=== PATIENT | female | born 1985 | race Caucasian/White ===

== ENCOUNTER 2020-12-07 21:44 | Inpatient (IN) ==
[~2020-12-07 21:44] MED LIST: Penicillin G Potassium IV 3,000,000 UNITS in NS 0.9% 100 ml BAG 100 ML IVPB SCH
[2020-12-07] MEDS ORDERED: Buffered Lidocaine 1% SYRIN 1 ml INTRADERM ONE (23:07)
[2020-12-07] MEDS ORDERED: Lactated Ringers 1000 ml BAG 1,000 ML IV ONE (23:07)
[2020-12-07] MEDS ORDERED: Penicillin G Potassium IV 5,000,000 UNITS in NS 0.9% 100 ml BAG 100 ML IVPB ONE (23:07)
[2020-12-07] MEDS ORDERED: Penicillin G Potassium IV 3,000,000 UNITS in NS 0.9% 100 ml BAG 100 ML IVPB SCH (23:45)
[2020-12-07] MEDS ORDERED: Lactated Ringers 1000 ml BAG 1,000 ML IV SCH (23:45)
[2020-12-07 23:49] LABS: ABS Lymphocytes 1.7 10^3/ul (1.0-4.8); ABS Monocytes 0.7 10^3/ul (0-0.8); ABS Neutrophils 10.2 10^3/ul (1.5-7.7); Eosinophil % 0.1 %; Hematocrit 38 % (35-47); Hemoglobin 12.8 g/dL (12.0-16.0); Lymphocyte % 13.5 %; Mean Corpuscular HGB Conc 34 g/dL (31-36); Mean Corpuscular Hemoglobin 28 pg (27-31); Mean Corpuscular Volume 84 fL (80-97); Mean Platelet Volume 9.6 fL (7.4-10.4); Platelet Count 234 10^3/uL (150-450); Red Blood Count 4.52 10^6 /uL (3.70-4.87); Red Cell Distribution Width 14 % (10-15); White Blood Count 12.5 10^3/uL (3.5-10.8)
[2020-12-07] MEDS ORDERED: OBEPIDURAL 0 ML EPIDURAL ONE (23:58)
[2020-12-08] MEDS ORDERED: Oxytocin in LR 20 UNITS/1,000 ML BAG IVPB ONE (00:38)
[2020-12-08 02:25] LABS: Urine Benzodiazepine Screen None Detected (None Detect); Urine Cannabinoids Screen None Detected (None Detect); Urine Opiates Screen None Detected (None Detect)
[2020-12-08] MEDS ORDERED: Glycerin ADULT 2.4 gm SUPP PR PRN (03:36)
[2020-12-08] MEDS ORDERED: Penicillin G Potassium IV 3,000,000 UNITS in NS 0.9% 100 ml BAG 100 ML IVPB SCH (04:00)
[2020-12-08] MEDS ORDERED: Oxytocin in LR 20 UNITS/1,000 ML BAG IVPB SCH (04:00)
[2020-12-08] MEDS ORDERED: Lactated Ringers 1000 ml BAG 1,000 ML IV SCH (04:00)
[2020-12-08] MEDS: Witch Hazel PAD JAR TOPICAL PRN (04:11)
[2020-12-08] MEDS: Dibucaine 1% OINT 28.35 GM TUBE PR PRN (04:11)
[2020-12-09 06:25] LABS: ABS Eosinophils 0.1 10^3/ul (0-0.6); ABS Lymphocytes 3.1 10^3/ul (1.0-4.8); ABS Monocytes 0.4 10^3/ul (0-0.8); ABS Neutrophils 5.1 10^3/ul (1.5-7.7); Hematocrit 29 % (35-47); Hemoglobin 10.1 g/dL (12.0-16.0); Lymphocyte % 35.2 %; Mean Corpuscular HGB Conc 35 g/dL (31-36); Mean Corpuscular Hemoglobin 29 pg (27-31); Mean Corpuscular Volume 85 fL (80-97); Mean Platelet Volume 9.3 fL (7.4-10.4); Platelet Count 197 10^3/uL (150-450); Red Blood Count 3.45 10^6 /uL (3.70-4.87); Red Cell Distribution Width 14 % (10-15); White Blood Count 8.8 10^3/uL (3.5-10.8)
[2020-12-09] MEDS: Dibucaine 1% OINT 28.35 GM TUBE PR PRN (20:24)
[2020-12-09] MEDS: Witch Hazel PAD JAR TOPICAL PRN (20:24)
[2020-12-10 08:33] VITALS: BP 109/74
== END 2020-12-10 12:14 | disposition home or self-care (01) | DRG 807 ==
LOC: MCHOBOUT 21:44 → MCHOB 22:45
PROVIDERS: ADMIT Obstetrics & Gynecology; ATTEND Obstetrics & Gynecology

== ENCOUNTER 2023-07-06 17:57 | Inpatient (IN) ==
[2023-07-06] MEDS ORDERED: Buffered Lidocaine 1% SYRIN 1 ml INTRADERM ONE (18:33)
[2023-07-06] MEDS ORDERED: Prochlorperazine 5 mg/ml 2 ml VIAL (10 mg) IV PRN (18:33)
[2023-07-06] MEDS ORDERED: Lidocaine 1% VIAL 10 MG/ML 30 ML VIAL INJ PRN (18:33)
[2023-07-06] MEDS ORDERED: Nalbuphine 10 MG/ML 1 ML VIAL IV PRN (18:33)
[2023-07-06] MEDS: Dinoprostone 10 MG VAG.SUPP VAGINAL ONE (19:44)
[2023-07-06 19:49] LABS: Urine Benzodiazepine Screen None Detected (None Detect); Urine Cannabinoids Screen None Detected (None Detect); Urine Opiates Screen None Detected (None Detect)
[2023-07-07] MEDS: Lactated Ringers 1000 ml BAG 1,000 ML IV ONE (10:59)
[2023-07-07 11:18] LABS: ABS Lymphocytes 1.8 10^3/uL (1.0-4.8); ABS Monocytes 0.4 10^3/uL (0.0-0.9); ABS Neutrophils 6.8 10^3/uL (1.5-7.6); Eosinophil % 0.3 %; Hematocrit 35.3 % (35-45); Hemoglobin 11.9 g/dL (11.5-14.3); Lymphocyte % 19.5 %; Mean Corpuscular Hemoglobin 27.1 pg (27-33); Mean Corpuscular Hgb Conc 33.6 g/dL (31-36); Mean Corpuscular Volume 80.5 fL (80-97); Mean Platelet Volume 9.1 fL (7.5-11.2); Platelet Count 206 10^3/uL (150-450); Red Blood Count 4.39 10^6/uL (3.63-4.92); Red Cell Distribution Width 15.4 % (12-17)
[2023-07-07] MEDS ORDERED: OBEPIDURAL (200 ML) 200 ML EPIDURAL ONE (11:24)
[2023-07-07] MEDS ORDERED: Lidocaine 1.5% EPI 1:200,000 30 ML SDV ONE (11:24)
[2023-07-07] MEDS ORDERED: Phenylephrine 40 mcg/mL 10mL (400mcg) SYRINGE IV PUSH PRN (11:34)
[2023-07-07] MEDS ORDERED: Lactated Ringers 1000 ml BAG 1,000 ML IV ONE (11:34)
[2023-07-07] MEDS ORDERED: Sodium Citrate/Citric Acid LIQ 15 ML UDC PO PRN (11:34)
[2023-07-07] MEDS: Penicillin G Potassium IV 5,000,000 UNITS in NS 0.9% 100 ml BAG 100 ML IVPB ONE (11:45)
[2023-07-07] MEDS ORDERED: Lactated Ringers 1000 ml BAG 1,000 ML IV SCH ×2 (12:00→18:00)
[2023-07-07] MEDS: OBEPIDURAL (200 ML) 200 ML EPIDURAL SCH (12:03)
[2023-07-07] MEDS: Phenylephrine 40 mcg/mL 10mL (400mcg) SYRINGE IV PUSH PRN (12:18)
[2023-07-07 13:35] LABS: Urine Appearance Clear; Urine Bilirubin Negative (Negative); Urine Blood 1+ (Negative); Urine Color Colorless; Urine Glucose Negative (Negative); Urine Ketones Negative (Negative); Urine Nitrite Negative (Negative); Urine Protein Negative (Negative); Urine Specific Gravity 1.005 (1.002-1.030); Urine Urobilinogen Negative (Negative); Urine pH 7.5 (5.0-8.0)
[2023-07-07 14:01] LABS: Urine Bacteria Absent /HPF (Absent); Urine Red Blood Cell Trace(0-2/hpf) /HPF (0-Trace); Urine Squamous Epithelial Cell Present /HPF (Absent); Urine White Blood Cell Trace(0-5/hpf) /HPF (0-Trace)
[2023-07-07] MEDS: Oxytocin in LR 20,000 MILLI.UNIT/1,000 ML BAG IV SCH (15:19)
[2023-07-07] MEDS: Penicillin G Potassium IV 3,000,000 UNITS in NS 0.9% 100 ml BAG 100 ML IVPB SCH (16:42)
[2023-07-07] MEDS: Lactated Ringers 1000 ml BAG 1,000 ML IV SCH (16:42)
[2023-07-07] MEDS ORDERED: Glycerin ADULT 2.4 gm SUPP PR PRN (17:17)
[2023-07-07] MEDS ORDERED: Oxytocin in LR 20,000 MILLI.UNIT/1,000 ML BAG IV SCH (17:20)
[2023-07-07] MEDS: Dibucaine 1% OINT 28.35 GM TUBE PR PRN (18:45)
[2023-07-07] MEDS: Witch Hazel PAD JAR TOPICAL PRN (18:45)
[2023-07-08 06:42] LABS: ABS Eosinophils 0.1 10^3/uL (0.0-0.5); ABS Lymphocytes 2.4 10^3/uL (1.0-4.8); ABS Monocytes 0.8 10^3/uL (0.0-0.9); ABS Neutrophils 6.8 10^3/uL (1.5-7.6); Eosinophil % 0.7 %; Hematocrit 30.1 % (35-45); Hemoglobin 10.3 g/dL (11.5-14.3); Lymphocyte % 23.9 %; Mean Corpuscular Hemoglobin 27.3 pg (27-33); Mean Corpuscular Hgb Conc 34.1 g/dL (31-36); Mean Corpuscular Volume 80.1 fL (80-97); Mean Platelet Volume 9.1 fL (7.5-11.2); Platelet Count 173 10^3/uL (150-450); Red Blood Count 3.76 10^6/uL (3.63-4.92); Red Cell Distribution Width 15.6 % (12-17); White Blood Count 10.1 10^3/uL (3.8-11.8)
[2023-07-09 07:40] VITALS: BP 128/70
== END 2023-07-09 16:31 | disposition home or self-care (01) | DRG 807 ==
LOC: MCHOBOUT 17:57 → MCHOB 18:34
PROVIDERS: ADMIT Obstetrics & Gynecology; ATTEND Obstetrics & Gynecology